=== PATIENT | female | born 1970 | race Caucasian/White ===

== ENCOUNTER 2016-11-19 22:21 | Emergency (ER) | payer OTHER ==
[2016-11-19 22:22] VITALS: BMI 25.0
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
[2016-11-20] VITALS: PULSE 75
[2016-11-20 01:03] VITALS: RESP 19
[2016-11-20 02:47] VITALS: BP 120/72; TEMP 98; O2SAT 100
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
== END 2016-11-20 02:48 | disposition home or self-care (01) ==
LOC: ED 22:21
DX: S09.90XA Unspecified injury of head, initial encounter (principal); Y08.89XA Assault by other specified means, initial encounter; Y93.89 Activity, other specified; Y92.89 Other specified places as the place of occurrence of the external cause; F10.129 Alcohol abuse with intoxication, unspecified
CPT/HCPCS: 70450; 99285; J2060